=== PATIENT | male | born 1950 | race Caucasian/White ===

== ENCOUNTER 2016-09-28 22:38 | Emergency (ER) | payer SELFPAY ==
[~2016-09-28] VITALS: Ht 177.8 cm; Wt 105.0 kg
[2016-09-28 22:40] VITALS: BP 130/73; PULSE 79; RESP 18; TEMP 98.3; O2SAT 94
[2016-09-28] MEDS ORDERED: METF500T PO (22:58)
[2016-09-28] MEDS ORDERED: LISI10TA3 PO (22:58)
--- NOTE | 2016-09-28 22:58 | PD ---
HPI Chief Complaint: GI Complaint Time Seen by Provider: 22:49 Travel History International Travel<30 days: No Contact w/Intl Traveler<30days: No Traveled to known affect area: No History of Present Illness HPI patient states the last time he had a normal bm was 3 days ago, since then he has progressively become more and more bloated, describes scale at 2/ 10......denies any abdominal surgery. pt does state that he has a history of constipation but usually he starts to produce small bm's and eventually clears up. patient denies association with fever/n/v/..... PFSH Past Medical History Diabetes: Yes Social History Tobacco Use: No Allergies-Medications (Allergen,Severity, Reaction): Coded Allergies: No Known Allergies (Unverified , 09/28/16) Reported Meds & Prescriptions Reported Meds & Active Scripts Active Reported Lisinopril 10 Mg Tab 10 Mg PO DAILY Metformin (Metformin HCl) 500 Mg Tab 500 Mg PO TIDPC With meals Review of Systems Except as stated in HPI: all other systems reviewed are Neg Gastrointestinal: Positive: Abdominal Pain, Constipation Physical Exam Narrative GENERAL: SKIN: Warm and dry. HEAD: Atraumatic. Normocephalic. EYES: Pupils equal and round. No scleral icterus. No injection or drainage. ENT: No nasal bleeding or discharge. Mucous membranes pink and moist. NECK: Trachea midline. No JVD. CARDIOVASCULAR: Regular rate and rhythm. RESPIRATORY: No accessory muscle use. Clear to auscultation. Breath sounds equal bilaterally. GASTROINTESTINAL: Abdomen soft, non-tender, nondistended. bowel sounds present. MUSCULOSKELETAL: Extremities without clubbing, cyanosis, or edema. No obvious deformities. NEUROLOGICAL: Awake and alert. No obvious cranial nerve deficits. Motor grossly within normal limits. Five out of 5 muscle strength in the arms and legs. Normal speech. PSYCHIATRIC: Appropriate mood and affect; insight and judgment normal. Data Data Last Documented VS Vital Signs Date Time Temp Pulse Resp B/P Pulse Ox O2 Delivery O2 Flow Rate FiO2 09/28/16 22:58 18 09/28/16 22:40 98.3 79 130/[address] Abd/Pel W/O Iv Contrast (09/28/16 22:53) Ondansetron Odt (Zofran Odt) (09/28/16 23:45) Lactulose Liq (Lactulose Liq) (09/28/16 23:45) Bisacodyl Supp (Dulcolax Supp) (09/28/16 23:45) MDM Medical Decision Making Medical Screen Exam Complete: Yes Emergency Medical Condition: Yes Medical Record Reviewed: Yes Differential Diagnosis sbo v ileus v constipation v free air Narrative Course CT DID NOT SHOW ANY SBO/ILEUS/OR FREE AIR FOR PARTIAL RELIEF PATIENT GIVEN LACTULOSE/DULCOLAX SUPPOSITORY IN ED Diagnosis Primary Impression: CONSTIPATION Scripts Magnesium Citrate Liq 300 Ml Xnl232 Ml PO ONCE #1 BOTTLE Ref 0 Prov:Olayinka Odell MD 09/28/16 Lactulose Liq 10 Gm/15 Ml Soln30 Ml PO Q6H PRN (CONSTIPATION) #240 ML Ref 0 Prov:Olayinka Odell MD 09/28/16 Polyethylene Glycol 3350 Powder (Miralax Powder)17 Gm Powd17 Gm PO DAILY #1 CAN Ref 0 Mix and dissolve one measuring cap-ful (17 grams) in water or juice. Prov:Olayinka Odell MD 09/28/16 Disposition: 01 DISCHARGE HOME Condition: Stable Olayinka Odell MD Sep 28, 2016 22:58
[2016-09-28] MEDS ORDERED: ONDANSETRON ODT 4 MG TAB PO ONE (23:45)
[2016-09-28] MEDS ORDERED: LACTULOSE SYRUP 20 GM/30 ML CUP PO ONE (23:45)
[2016-09-28] MEDS ORDERED: BISACODYL 10 MG SUPP RECTAL ONE (23:45)
[2016-09-28] MEDS ORDERED: MAGNSOL2 PO (23:47)
[2016-09-28] MEDS ORDERED: LACT10SO PO (23:47)
[2016-09-28] MEDS ORDERED: MIRA3350 PO (23:47)
--- NOTE | 2016-09-28 23:51 | RADRPT ---
EXAM DATE/TIME: 09/28/2016 23:18 [facility] COMPARISON: No previous studies available for comparison. INDICATIONS : Constipation and abdominal pain for 3 days. ORAL CONTRAST: No oral contrast ingested. RADIATION DOSE: 25.28 CTDIvol (mGy) ; Patient body habitus MEDICAL HISTORY : Diabetes mellitus type 2. SURGICAL HISTORY : None. ENCOUNTER: Initial ACUITY: 3 days PAIN SCALE: 6/10 LOCATION: abdomen TECHNIQUE: Volumetric scanning of the abdomen and pelvis was performed. Using automated exposure control and ad justment of the mA and/or kV according to patient size, radiation dose was kept as low as reasonably achievable to obtain optimal diagnostic quality images. DICOM format image data is available electro nically for review and comparison. FINDINGS: LOWER LUNGS: Patchy atelectasis at the lung bases. LIVER: Diffuse marked hypodensity of the liver indicating severe hepatic steatosis. No focal mass identified . Small calcified gallstone in the gallbladder. No pericholecystic inflammatory change. SPLEEN: Enlarged spleen measuring 13.3 cm in craniocaudal dimension. No focal mass identified. PANCREAS: Within normal limits. KIDNEYS: 1.6 cm exophytic mass thinning laterally off the lower pole of the left kidney. It is intermediate de nsity. No renal or ureteral calculi identified. No evidence of hydronephrosis. ADRENAL GLANDS: Within normal limits. VASCULAR: Diffuse aortic calcification. Aortic diameter are within normal limits. BOWEL/MESENTERY: Colonic diverticula. No evidence of acute diverticulitis. No bowel dilatation. No free air or free fl uid. Nonspecific stranding in the mesenteric fat of the right lower quadrant and left lower quadrant. Appendix is not identified. ABDOMINAL WALL: Within normal limits. RETROPERITONEUM: There is no lymphadenopathy. BLADDER: No wall thickening or mass. REPRODUCTIVE: Within normal limits. INGUINAL: There is no lymphadenopathy or hernia. MUSCULOSKELETAL: Moderate severity osteoarthritic findings of the hips. CONCLUSION: 1. Severe hepatic steatosis. 2. Mild splenomegaly. 3. Small gallstone in the gallbladder. No pericholecystic inflammatory change. 4. Nonspecific stranding opacity in the mesenteric fat of the right lower quadrant and left lower rachel drant. No free air or free fluid. 5. Appendix not identified. Myles Gilman MD on September 28, 2016 at 23:42 Board Certified Radiologist. This report was verified electronically.
[2016-09-29 00:11] VITALS: BP 130/70; PULSE 72; RESP 18; O2SAT 98
== END 2016-09-29 00:13 | disposition home or self-care (01) ==
LOC: PHED 22:38
DX: K59.00 Constipation, unspecified (principal)
CPT/HCPCS: 74176

== ENCOUNTER 2016-11-26 11:13 | Inpatient (IN) | payer SELFPAY ==
[~2016-11-26] VITALS: Ht 177.8 cm; Wt 99.8 kg
[2016-11-26] VITALS (10 sets, daily range): BP systolic 126–152; BP diastolic 73–94; PULSE 60–95; RESP 16–26; TEMP 98–98.5; O2SAT 93–97
[~2016-11-26 11:13] MED LIST: LACT10SO PO; LISI10TA3 PO; MAGNSOL2 PO; METF500T PO; MIRA3350 PO
--- NOTE | 2016-11-26 11:33 | PD ---
HPI Chief Complaint: Nosebleed Time Seen by Provider: 11:30 Travel History International Travel<30 days: No Contact w/Intl Traveler<30days: No Traveled to known affect area: No History of Present Illness HPI Patient presents with complaints of persistent nosebleed for approximately one week. Reports recent bout of sinusitis which has improved. Reports unspecific history of thrombocythemia. He is not on any blood thinners. Reports postnasal drainage of blood which is making him slightly nauseous. Denies any lightheadedness dizziness or fatigue. Past medical history for diabetes and hypertension. PFSH Past Medical History Diabetes: Yes Diminished Hearing: No Hypertension: Yes Social History Alcohol Use: No Tobacco Use: No Substance Use: No Allergies-Medications (Allergen,Severity, Reaction): Coded Allergies: No Known Allergies (Unverified , 11/26/16) Reported Meds & Prescriptions Reported Meds & Active Scripts Active Reported Lisinopril 10 Mg Tab 10 Mg PO DAILY Metformin (Metformin HCl) 500 Mg Tab 500 Mg PO TIDPC With meals Review of Systems General / Constitutional: No: Fever Eyes: No: Visual changes HENT: Positive: Nosebleed, No: Headaches Cardiovascular: No: Chest Pain or Discomfort Respiratory: No: Shortness of Breath Gastrointestinal: No: Abdominal Pain Genitourinary: No: Dysuria Musculoskeletal: No: Pain Skin: No Rash Neurologic: No: Weakness Psychiatric: No: Depression Endocrine: No: Polydipsia Hematologic/Lymphatic: No: Easy Bruising Physical Exam Narrative GENERAL: Well-nourished, well-developed patient. SKIN: Focused skin assessment warm/dry. HEAD: Normocephalic. Nares are filled with clotted blood EYES: No scleral icterus. No injection or drainage. NECK: Supple, trachea midline. No JVD or lymphadenopathy. CARDIOVASCULAR: Regular rate and rhythm without murmurs, gallops, or rubs. RESPIRATORY: Breath sounds equal bilaterally. No accessory muscle use. GASTROINTESTINAL: Abdomen soft, non-tender, nondistended. MUSCULOSKELETAL: No cyanosis, or edema. BACK: Nontender without obvious deformity. No CVA tenderness. Data Data Last Documented VS Vital Signs Date Time Temp Pulse Resp B/P (MAP) Pulse Ox O2 Delivery O2 Flow Rate FiO2 11/26/16 11:32 (92) 11/26/16 11:28 98.3 60 18 97 Room Air Orders Orders Complete Blood Count With Diff (11/26/16 11:34) Platelet Pheresis (11/26/16 12:16) Blood Product Administration .UPON TRANSFUSION (11/26/16 12:16) Sodium Chlor 0.9% 250 Ml Inj (Ns 250 Ml (11/26/16 12:30) Admit Order (Ed Use Only) (11/26/16 ) Vital Signs (Adult) Q4H (11/26/16 12:33) Diet 1800 Ada Cons Carb (11/26/16 Lunch) Activity Bed Rest With Brp (11/26/16 12:33) Complete Blood Count With Diff (11/27/16 06:00) Bedside Glucose DENIS.CSUGAR (11/26/16 12:33) Notify Dr: Other (11/26/16 12:33) ^ Saline Lock (11/26/16 12:33) Resp Oxygen Edmar C Titrat 1-4 L (11/26/16 ) Notify Dr: Other (11/26/16 12:33) Ondansetron Inj (Zofran Inj) (11/26/16 12:45) Acetaminophen (Tylenol) (11/26/16 12:45) Sodium Chloride 0.9% Flush (Ns Flush) (11/26/16 21:00) Sodium Chloride 0.9% Flush (Ns Flush) (11/26/16 12:45) Consult Hematology (11/26/16 ) Labs Laboratory Tests Test 11/26/16 11:45 White Blood Count 7.3 TH/MM3 Red Blood Count 3.87 MIL/MM3 Hemoglobin 13.9 GM/DL Hematocrit 41.1 % Mean Corpuscular Volume 106.1 FL Mean Corpuscular Hemoglobin 36.0 PG Mean Corpuscular Hemoglobin Concent 33.9 % Red Cell Distribution Width 14.2 % Platelet Count 4 TH/MM3 Mean Platelet Volume 6.9 FL Neutrophils (%) (Auto) 60.0 % Lymphocytes (%) (Auto) 22.8 % Monocytes (%) (Auto) 10.0 % Eosinophils (%) (Auto) 4.0 % Basophils (%) (Auto) 3.2 % Neutrophils # (Auto) 4.4 TH/MM3 Lymphocytes # (Auto) 1.7 TH/MM3 Monocytes # (Auto) 0.7 TH/MM3 Eosinophils # (Auto) 0.3 TH/MM3 Basophils # (Auto) 0.2 TH/MM3 CBC Comment AUTO DIFF Differential Comment AUTO DIFF CONFIRMED Platelet Estimate RARE Platelet Morphology Comment NORMAL MDM Medical Decision Making Medical Screen Exam Complete: Yes Emergency Medical Condition: Yes Differential Diagnosis epistaxis, thrombocytopenia, ITP Narrative Course assessment and plan discussed patient at bedside Physician Communication Physician Communication Spoke with Dr. Talley who is in agreement will admit. Spoke with Dr. Jarquin who recommended oral steroid and LDH to differentiate between ITP and TTP. Diagnosis Primary Impression: Thrombocytopenia Additional Impression: Epistaxis Admitting Information Admitting Physician Requests: Admit Jorge Luis Rueda MD Nov 26, 2016 11:33
[2016-11-26 11:51] LABS: AUTOMATED NEUTROPHIL # 4.4 TH/MM3 (1.8-7.7); BASOPHIL # 0.2 TH/MM3 (0-0.2); BASOPHIL % 3.2 % (0.0-2.0); EOSINOPHIL # 0.3 TH/MM3 (0-0.4); HEMATOCRIT 41.1 % (39.0-51.0); LYMPH % 22.8 % (9.0-44.0); LYMPHOCYTE # 1.7 TH/MM3 (1.0-4.8); MEAN CELL VOLUME 106.1 FL (80.0-100.0); MEAN CORPUSCULAR HGB CONC 33.9 % (32.0-36.0); RED BLOOD COUNT 3.87 MIL/MM3 (4.50-5.90); RED CELL DISTRIBUTION WIDTH 14.2 % (11.6-17.2); WHITE BLOOD COUNT 7.3 TH/MM3 (4.0-11.0)
[2016-11-26 12:04] LABS: HEMO FLAGS AUTO DIFF; PLATELET COUNT 4 TH/MM3 (150-450)
[2016-11-26 12:14] LABS: PLATELET ESTIMATE SMEAR RARE (NORMAL); PLATELET MORPHOLOGY NORMAL (NORMAL); SCAN/DIFF AUTO DIFF CONFIRMED
[2016-11-26] MEDS ORDERED: SODIUM CHLOR 0.9% 250 ML INJ 250 ML IV ONE (12:30)
[2016-11-26] MEDS ORDERED: predniSONE 10 MG TAB PO SCH (12:45)
[2016-11-26] MEDS ORDERED: ACETAMINOPHEN 325 MG TAB PO PRN (12:45)
[2016-11-26] MEDS ORDERED: ONDANSETRON HCL 4 MG/2 ML VIAL IV PRN (12:45)
[2016-11-26] MEDS ORDERED: SODIUM CHLORIDE 0.9% FLUSH 10 ML FLUSH IVF PRN (12:45)
[2016-11-26] MEDS ORDERED: NALOXONE HCL 0.4 MG/ML AMP IV PUSH PRN (13:30)
[2016-11-26] MEDS ORDERED: ACETAMINOPHEN/HYDROcodone 325 MG/5 MG TAB PO PRN (13:30)
[2016-11-26] MEDS ORDERED: BISACODYL 10 MG SUPP RECTAL PRN (13:30)
[2016-11-26] MEDS ORDERED: MAGNESIUM HYDROXIDE SUSP 30 ML CUP PO PRN (13:30)
[2016-11-26] MEDS ORDERED: LACTULOSE SYRUP 20 GM/30 ML CUP PO PRN (13:30)
[2016-11-26] MEDS ORDERED: DEXTROSE 50% IN WATER 50 ML VIAL(D50) IV PUSH PRN (13:30)
[2016-11-26] MEDS ORDERED: GLUCAGON 1 MG/ML VIAL OTHER PRN (13:30)
[2016-11-26] MEDS ORDERED: SODIUM CHLORIDE 0.9% FLUSH 10 ML FLUSH IV FLUSH PRN (13:30)
[2016-11-26] MEDS ORDERED: SENNOSIDES 8.6 MG TAB PO PRN (13:30)
[2016-11-26 13:50] LABS: BICARBONATE 25.3 MEQ/L (21.0-32.0); POTASSIUM 3.9 MEQ/L (3.5-5.1)
[2016-11-26 14:29] LABS: INDIRECT BILIRUBIN 1.3 MG/DL (0.0-0.8); TOTAL BILIRUBIN ADULT 2.7 MG/DL (0.2-1.0)
[2016-11-26 14:30] LABS: APTT (PATIENT) 32.1 SEC (24.3-30.1); INTERNATIONAL NORMALIZED RATIO 1.2 RATIO; PROTHROMBIN TIME - PATIENT 13.3 SEC (9.8-11.6)
--- NOTE | 2016-11-26 14:35 | HHI.HP ---
HPI [facility] Primary Care Physician No Primary Care Physician Admission Diagnosis thrombocytopenia Diagnoses: Travel History International Travel<30 Days: No Contact w/Intl Traveler <30 Da: No Traveled to Known Affected Are: No History of Present Illness This is a 65 year-old male with past medical history of type 2 diabetes and hypertension who presents for a two-week history of intermittent nosebleeds. The patient states he's been having nasal bleeding which resolves on its own and also postnasal drip. The symptoms continued to bother him so he presented to the ER. In the emergency department he was found to have platelet count of 4000. The patient states he was told he had low platelets 2 years ago by his primary care physician at that time there were 80,000. The patient states he has never received medication or transfusion. The patient states he recently moved here from [place] and has not established with a primary care physician. The patient denies any GI bleeding. Denies any rash or fever. He states he gets have a cold 2 weeks ago before the nasal bleeding started. Review of Systems Constitutional: DENIES: Fever, Chills Ears, nose, mouth, throat: COMPLAINS OF: Epistaxis, DENIES: Throat pain Respiratory: DENIES: Cough, Shortness of breath Cardiovascular: DENIES: Syncope, Lower Extremity Edema Gastrointestinal: DENIES: Abdominal pain, Black stools, Bloody stools Genitourinary: DENIES: Urgency, Dysuria Musculoskeletal: DENIES: Back pain, Neck pain Integumentary: DENIES: Pruritus, Rash Hematologic/lymphatic: DENIES: Lymphadenopathy Neurologic: DENIES: Abnormal gait, Headache Psychiatric: DENIES: Anxiety, Confusion Past Family Social History Past Medical History As per history of present illness Past Surgical History Facelift 25 years ago after his divorce Allergies: Coded Allergies: No Known Allergies (Unverified , 11/26/16) Family History Negative for blood cell dyscrasia Social History He quit drinking about 10 days ago no history of tobacco use Physical Exam Vital Signs Vital Signs Date Time Temp Pulse Resp B/P (MAP) Pulse Ox O2 Delivery O2 Flow Rate FiO2 11/26/16 13:40 98.1 72 26 152/94 (113) 96 11/26/16 13:33 11/26/16 13:22 64 16 126/80 (95) 96 Room Air 11/26/16 11:32 (92) 11/26/16 11:28 98.3 60 18 131/73 (92) 97 Room Air Physical Exam GENERAL: This is a well-nourished, well-developed patient, in no apparent distress. SKIN: No rashes, ecchymoses or lesions. Cool and dry. No petechiae. HEAD: Atraumatic. Normocephalic. EYES: Pupils equal round and reactive. Extraocular motions intact. No scleral icterus. No injection or drainage. ENT: Nares currently without bleeding. He does have dried blood on his lips. Throat without erythema, tonsillar hypertrophy or exudate. Uvula midline. Airway patent. NECK: Trachea midline. No JVD or lymphadenopathy. Supple, nontender, no meningeal signs. CARDIOVASCULAR: Regular rate and rhythm without murmurs, gallops, or rubs. RESPIRATORY: Clear to auscultation. Breath sounds equal bilaterally. No wheezes , rales, or rhonchi. GASTROINTESTINAL: Abdomen soft, non-tender, nondistended. No hepato-splenomegaly , or palpable masses. No guarding. MUSCULOSKELETAL: Extremities without clubbing, cyanosis, or edema. NEUROLOGICAL: Awake and alert. Motor and sensory grossly within normal limits. Normal speech. Laboratory Laboratory Tests Test 11/26/16 11:45 11/26/16 13:45 White Blood Count 7.3 Red Blood Count 3.87 Hemoglobin 13.9 Hematocrit 41.1 Mean Corpuscular Volume 106.1 Mean Corpuscular Hemoglobin 36.0 Mean Corpuscular Hemoglobin Concent 33.9 Red Cell Distribution Width 14.2 Platelet Count 4 Mean Platelet Volume 6.9 Neutrophils (%) (Auto) 60.0 Lymphocytes (%) (Auto) 22.8 Monocytes (%) (Auto) 10.0 Eosinophils (%) (Auto) 4.0 Basophils (%) (Auto) 3.2 Neutrophils # (Auto) 4.4 Lymphocytes # (Auto) 1.7 Monocytes # (Auto) 0.7 Eosinophils # (Auto) 0.3 Basophils # (Auto) 0.2 CBC Comment AUTO DIFF Differential Comment AUTO DIFF CONFIRMED Platelet Estimate RARE Platelet Morphology Comment NORMAL Prothrombin Time 13.3 Prothromb Time International Ratio 1.2 Activated Partial Thromboplast Time 32.1 Blood Urea Nitrogen 7 Creatinine 0.69 Random Glucose 201 Calcium Level 8.1 Lactate Dehydrogenase 330 Sodium Level 135 Potassium Level 3.9 Chloride Level 102 Carbon Dioxide Level 25.3 Anion Gap 8 Estimat Glomerular Filtration Rate 116 Total Bilirubin 2.7 Direct Bilirubin 1.4 Indirect Bilirubin 1.3 Aspartate Amino Transf (AST/SGOT) 96 Alanine Aminotransferase (ALT/SGPT) 38 Alkaline Phosphatase 116 Total Protein 7.1 Albumin 2.8 Blood Smear Pathologist Review Result Diagram: 11/26/16 1145 11/26/16 1145 Caprini VTE Risk Assessment Caprini VTE Risk Assessment: No/Low Risk (score <= 1) Caprini Risk Assessment Model Point Value = 1 Point Value = 2 Point Value = 3 Point Value = 5 Age 41-60 Minor surgery BMI > 25 kg/m2 Swollen legs Varicose veins or History of unexplained or recurrent spontaneous Oral contraceptives or hormone replacement Sepsis (< 1 month) Serious lung disease, including pneumonia (< 1 month) Abnormal pulmonary function Acute myocardial infarction Congestive heart failure (< 1 month) History of inflammatory bowel disease Medical patient at bed rest Age 61-74 Arthroscopic surgery Major open surgery (> 45 min) Laparoscopic surgery (> 45 min) Malignancy Confined to bed (> 72 hours) Immobilizing plaster cast Central venous access Age >= 75 History of VTE Family history of VTE Factor V Leiden Prothrombin [id number] Lupus anticoagulant Anticardiolipin antibodies Elevated serum homocysteine Heparin-induced thrombocytopenia Other congenital or acquired thrombophilia Stroke (< 1 month) Elective arthroplasty Hip, pelvis, or leg fracture Acute spinal cord injury (< 1 month) Prophylaxis Regimen Total Risk Factor Score Risk Level Prophylaxis Regimen 0-1 Low Early ambulation 2 Moderate Order ONE of the following: *Sequential Compression Device (SCD) *Heparin 5000 units SQ BID 3-4 Higher Order ONE of the following medications: *Heparin 5000 units SQ TID *Enoxaparin/Lovenox 40 mg SQ daily (WT < 150 kg, CrCl > 30 mL/min) *Enoxaparin/Lovenox 30 mg SQ daily (WT < 150 kg, CrCl > 10-29 mL/min) *Enoxaparin/Lovenox 30 mg SQ BID (WT < 150 kg, CrCl > 30 mL/min) AND/OR *Sequential Compression Device (SCD) 5 or more Highest Order ONE of the following medications: *Heparin 5000 units SQ TID (Preferred with Epidurals) *Enoxaparin/Lovenox 40 mg SQ daily (WT < 150 kg, CrCl > 30 mL/min) *Enoxaparin/Lovenox 30 mg SQ daily (WT < 150 kg, CrCl > 10-29 mL/min) *Enoxaparin/Lovenox 30 mg SQ BID (WT < 150 kg, CrCl > 30 mL/min) AND *Sequential Compression Device (SCD) Assessment and Plan Assessment and Plan -Thrombocytopenia, 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 Emergency department physician contacted to the figurine maker on-call who recommended steroids. I started patient on 100 mg of prednisone daily. Emergency department physician did order platelet transfusion. We'll start Protonix for GI prophylaxis. LDH is pending. Peripheral blood smear is pending. -Nosebleeds due to thrombocytopenia. Not currently bleeding. Monitor. -Type 2 diabetes. Continue metformin. Sliding scale insulin with Accu-Cheks. -Hypertension continue lisinopril. -DVT prophylaxis with SCDs Magali Talley MD Nov 26, 2016 14:35
[2016-11-26] MEDS: predniSONE 20 MG TAB PO SCH (14:45)
[2016-11-26] MEDS: metFORMIN HCL 500 MG TAB PO SCH ×2 (14:46→18:22)
[2016-11-26] MEDS: PANTOPRAZOLE SOD 20 MG DELAYED RELEASE TAB PO SCH (15:12)
[2016-11-26] MEDS ORDERED: OXYMETAZOLINE HCL 0.05% 15 ML NASAL SPRAY NASAL PRN (16:30)
[2016-11-26] MEDS: FOLIC ACID 1 MG TAB PO SCH (16:54)
--- NOTE | 2016-11-26 17:50 | MB ---
cc: HÉCTOR MENDIETA M.D., RUBY ANNE E. M.D. DATE OF CONSULTATION: 11/26/2016. REASON FOR CONSULTATION: Dr. Mendieta requested consultation for Mr. Rodriguez with severe thrombocytopenia associated with epistaxis. REFERRING PHYSICIAN: Dr. Héctor Mendieta. HISTORY OF PRESENT ILLNESS: Mr. Rodriguez is a 65-year-old man with history of diabetes. He initially presented to the [facility] Emergency Room with GI complaints on 09/28/2016. He describes feeling bloated. He has a history of constipation. He had no nausea or vomiting. Imaging study was performed. CT scan of the abdomen and pelvis shows severe hepatic steatosis, mild splenomegaly, small gallstone in the gallbladder. There is nonspecific stranding opacity in the mesenteric fat of the right lower quadrant and the left lower quadrant. No free air. The appendix was not identified. Ultimately he was discharged home. No labs were performed. He reports a history of thrombocytopenia from his physicians in [place]. He has moved temporarily to the [facility] near his mother pending a more permanent move to [place]. He reports his platelet count is 80,000; it went up after further evaluation. He never saw a instructor military science. He never had a bone marrow biopsy. No specific treatment was required for the mild thrombocytopenia. He has had no symptoms associated with it until now. Ten days ago he had an upper respiratory infection. Apparently his mother had an upper respiratory infection. He presented with sinus symptoms with some runny nose, coughing with productive sputum and no fever. It was at this time that his epistaxis began. Prior to that, he has no history of bleeding. No melena or bright red blood per rectum. He has chronic psoriasis of the lower extremities. He has had no petechiae. He noticed some wet purpura in his gums. He was taking ibuprofen at night because of his sinus symptoms unfortunately. Finally since his epistaxis was not improving, he presented to the emergency room and was seen by Dr. Mendieta. He has had persistent nosebleed for about a week. His platelet count is only 4000. Peripheral smear was reviewed. There were no platelet clumps. There were very few platelets. There seems to be a macrocytic picture for the red cells. Occasional activated lymphocytes. No nucleated red blood cells seen. The LDH was 330, which was slightly elevated. Liver function is interesting with a bilirubin of 2.7, direct of 1.4, indirect 1.3, AST is 96. The patient denies any history liver disease. He denies any problem with alcohol. It was his mother who on the side reports his alcohol abuse. He apparently drinks half a bottle of vodka every day. She feels that he has been drinking a lot more recently. This is consistent with his steatohepatitis and splenomegaly seen on his CT scan September. His epistaxis has resolved after the platelet transfusion. He is tolerating the steroids well. He is taking a proton pump inhibitor. There rest of his review of systems is negative. PAST MEDICAL HISTORY: 1. Diabetes. 2. Hypertension. 3. Steatohepatitis. 4. Alcoholic liver disease. 5. Alcoholism. PAST SURGICAL HISTORY: None FAMILY HISTORY: Father of Parkinson's in his 80s. Mother is alive and well. SOCIAL HISTORY: Denies any tobacco, alcohol or illicit drug use to the primary team. His mother reports otherwise. ALLERGIES: NO KNOWN DRUG ALLERGIES. MEDICATIONS FROM HOME: 1. Lisinopril. 2. Metformin. CURRENT MEDICATIONS: 1. Lisinopril. 2. NovoLog. 3. Deltasone. 4. Protonix. 5. [place]. 6. Narcan PRN. 7. Milk of magnesia. 8. Ondansetron. PHYSICAL EXAMINATION: VITAL SIGNS: Temperature 98.5, heart rate 78, respiratory rate 18, blood pressure 133/92, saturation 93%. GENERAL: Mr. Rodriguez is a well-developed, well-nourished man who actually looks older than his stated age. HEAD, EYES, EARS, NOSE, THROAT: His pupils are round and reactive to light and accommodation. The sclerae are mildly icteric. NECK: The neck is supple with no adenopathy. The mouth is significant for wet purpura on the lower lip. LUNGS: Clear to auscultation. CARDIOVASCULAR: Normal rate and rhythm. ABDOMEN: Large and distended. LOWER EXTREMITIES: With trace edema. There are chronic venous changes. There is a psoriatic plaque that has resolved on both legs, more prominent on the left. LABS: Hemoglobin 13.9, MCV 106, platelet count of 4000, mean platelet volume of 6.9. Glucose 201. Total bilirubin 2.7. PT and PTT are both prolonged. ASSESSMENT AND PLAN: Mr. Rodriguez is a 65-year-old man with history of alcohol use, which he has not been willing to disclose. He has evidence of steatohepatitis by imaging study during emergency room visit on 09/28/2016. He has known thrombocytopenia from two years ago, probably owing to the liver disease and the steatohepatitis with splenomegaly. 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 He reports a viral illness and subsequent to that has developed epistaxis. We discussed treatment for immune thrombocytopenic purpura. He is placed on steroids. He seems to be tolerating treatment well. We will check a platelet count in the morning. If his platelet count is improved to greater than 20,000, he may be discharged to follow up in the regional oncology clinic on an outpatient basis. We discussed if his platelet count continues to be low or not improved with steroids alone, we would initiate IVIG therapy. He would like to avoid that in the hopes of using one modality to improve his response. Afrin is offered for p.r.n. if his epistaxis recurs. We can use fibrinolytic agents to help. He will need to stop his alcohol use because of liver function elevation and the overt damage that is seen from the liver. He may need formal intervention and detox for this. It is likely the etiology of his thrombocytopenia initially. We discussed the diagnosis of ITP is a diagnosis of exclusion. I defer a bone marrow biopsy evaluation as he is planning to move to a more permanent place in [place]. It is best he establish with a permanent physician to coordinate this. We perform generally a bone marrow biopsy to rule out other causes of thrombocytopenia. It appears to be ITP in light of the low platelet counts but otherwise normal hemoglobin and white blood cell count. The macrocytosis is nicely explained by his alcohol consumption and liver disease. Folic acid is offered. We will monitor closely for any signs of DTs. He has no tremors. He is going to be checked for B12 deficiency. If low, B12 supplementation will be ordered. Lupus anticoagulant, antiphospholipid antibody panel will be checked. There are no other drugs to be considered as the cause of the thrombocytopenia. His questions were answered to his satisfaction. He was given information to follow up on in clinic on an outpatient basis. He may ultimately need to see a can repairer for liver abnormality. Gosia Daksha E. Deveras, MD RAD/THAO /4:24 PM /5:29 PM
[2016-11-26] MEDS: INSULIN ASPART SUPPLEMENTAL SCALE SQ SCH ×2 (18:21→22:32)
[2016-11-26] MEDS ORDERED: SODIUM CHLORIDE 0.9% FLUSH 10 ML FLUSH IV FLUSH SCH (21:00)
[2016-11-26] MEDS: SODIUM CHLORIDE 0.9% FLUSH 10 ML FLUSH IV FLUSH SCH (22:32)
[2016-11-27] VITALS (7 sets, daily range): BP systolic 118–135; BP diastolic 80–89; PULSE 67–80; RESP 16–19; TEMP 97.5–98; O2SAT 93–97
[2016-11-27] MEDS: LISINOPRIL 10 MG TAB PO SCH (08:46)
[2016-11-27] MEDS: predniSONE 20 MG TAB PO SCH (08:46)
[2016-11-27] MEDS: INSULIN ASPART SUPPLEMENTAL SCALE SQ SCH ×4 (08:46→21:30)
[2016-11-27] MEDS: PANTOPRAZOLE SOD 20 MG DELAYED RELEASE TAB PO SCH (08:46)
[2016-11-27] MEDS: metFORMIN HCL 500 MG TAB PO SCH ×3 (08:47→16:59)
[2016-11-27] MEDS: FOLIC ACID 1 MG TAB PO SCH (08:47)
[2016-11-27 08:49] LABS: AUTOMATED NEUTROPHIL # 5.5 TH/MM3 (1.8-7.7); BASOPHIL % 0.4 % (0.0-2.0); EOSINOPHIL % 0.1 % (0.0-4.0); HEMATOCRIT 40.5 % (39.0-51.0); LYMPH % 12.6 % (9.0-44.0); LYMPHOCYTE # 0.8 TH/MM3 (1.0-4.8); MEAN CELL VOLUME 105.9 FL (80.0-100.0); MEAN CORPUSCULAR HEMOGLOBIN 36.4 PG (27.0-34.0); MEAN CORPUSCULAR HGB CONC 34.4 % (32.0-36.0); MONO % 6.7 % (0.0-8.0); NEUT % 80.2 % (16.0-70.0); RED BLOOD COUNT 3.83 MIL/MM3 (4.50-5.90); WHITE BLOOD COUNT 6.7 TH/MM3 (4.0-11.0)
[2016-11-27] MEDS: SODIUM CHLORIDE 0.9% FLUSH 10 ML FLUSH IV FLUSH SCH ×2 (08:50→21:00)
[2016-11-27] MEDS ORDERED: predniSONE 20 MG TAB PO SCH (09:00)
[2016-11-27 09:10] LABS: INDIRECT BILIRUBIN 1.1 MG/DL (0.0-0.8); TOTAL BILIRUBIN ADULT 2.2 MG/DL (0.2-1.0)
[2016-11-27 09:11] LABS: HEMO FLAGS AUTO DIFF
[2016-11-27 09:12] LABS: PLATELET COUNT 13 TH/MM3 (150-450)
[2016-11-27 10:13] LABS: PLATELET ESTIMATE SMEAR LOW (NORMAL); PLATELET MORPHOLOGY NORMAL (NORMAL); SCAN/DIFF AUTO DIFF CONFIRMED
[2016-11-27] MEDS ORDERED: FLUMAZENIL 0.5 MG/5 ML VIAL IV PUSH PRN (10:15)
[2016-11-27] MEDS ORDERED: LORazepam 1 MG TAB PO PRN (10:15)
[2016-11-27] MEDS ORDERED: LORazepam 2 MG/ML VIAL IV PUSH PRN ×4 (10:15)
[2016-11-27] MEDS ORDERED: LORazepam 2 MG TAB PO PRN (10:15)
--- NOTE | 2016-11-27 13:35 | HHI.PR ---
Subjective Remarks Patient denies any further nasal bleeding or postnasal drip. No tremors or anxiety. Objective Vitals Vital Signs Date Time Temp Pulse Resp B/P (MAP) Pulse Ox O2 Delivery O2 Flow Rate FiO2 11/27/16 12:00 97.6 79 19 118/80 (93) 97 11/27/16 08:00 97.5 76 16 125/82 (96) 96 11/27/16 07:40 94 21 11/27/16 04:05 11/27/16 00:08 97.7 78 16 135/85 (102) 93 11/26/16 21:21 98.0 66 18 131/91 (104) 95 11/26/16 20:00 96 21 11/26/16 18:00 96 21 11/26/16 16:48 98.2 85 18 133/92 96 11/26/16 16:33 98.1 95 18 138/86 11/26/16 16:13 98.5 78 18 133/92 93 11/26/16 15:53 98.1 65 20 151/93 (112) 96 11/26/16 13:40 98.1 72 26 152/94 (113) 96 I/O 11/26/16 11/26/16 11/26/16 11/27/16 11/27/16 11/27/16 07:00 15:00 23:00 07:00 15:00 23:00 Intake Total 260 ml Balance 260 ml Intake Oral 240 ml IV Total 10 ml Blood Product IV Normal Saline Flush 10 ml # Voids 1 4 # Bowel Movements 1 Result Diagram: 11/27/16 0833 11/26/16 1145 Objective Remarks GENERAL: Well-nourished, well-developed patient. SKIN: Warm and dry. HEAD: Normocephalic. EYES: No scleral icterus. No injection or drainage. NECK: Supple, trachea midline. No JVD or lymphadenopathy. CARDIOVASCULAR: Regular rate and rhythm without murmurs, gallops, or rubs. RESPIRATORY: Breath sounds equal bilaterally. No accessory muscle use. GASTROINTESTINAL: Abdomen soft, non-tender, nondistended. EXTREMITIES: No cyanosis, or edema. NEUROLOGICAL: Awake, alert, and oriented x 3. Non-focal. No tremors. 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 Appreciate pulmonology consult. Continue 100 mg of prednisone daily. Platelets improved to 14,000 today. -Nosebleeds due to thrombocytopenia. Not currently bleeding. Monitor. -Type 2 diabetes. Continue metformin. Sliding scale insulin with Accu-Cheks. -Alcohol abuse. Last drink 10 days ago as per the patient. Monitor for signs of withdrawal. Alcohol withdrawal protocol as needed. -Hypertension continue lisinopril. -DVT prophylaxis with SCDs Magali Talley MD Nov 27, 2016 13:35
--- NOTE | 2016-11-27 17:43 | PD.ONC.PN ---
Subjective Subjective Remarks Anxious about slow rise platelet. Objective Data Date Time Temp Pulse Resp B/P (MAP) Pulse Ox O2 Delivery O2 Flow Rate FiO2 11/27/16 16:00 97.7 80 19 123/80 (94) 95 11/27/16 12:00 97.6 79 19 118/80 (93) 97 11/27/16 08:00 97.5 76 16 125/82 (96) 96 11/27/16 07:40 94 21 11/27/16 04:05 11/27/16 00:08 97.7 78 16 135/85 (102) 93 11/26/16 21:21 98.0 66 18 131/91 (104) 95 11/26/16 20:00 96 21 11/26/16 18:00 96 21 Result Diagram: 11/27/16 0833 11/26/16 1145 Laboratory Results Laboratory Tests Test 11/26/16 21:33 11/27/16 08:33 Fibrinogen 335 mg/dL White Blood Count 6.7 TH/MM3 Red Blood Count 3.83 MIL/MM3 Hemoglobin 13.9 GM/DL Hematocrit 40.5 % Mean Corpuscular Volume 105.9 FL Mean Corpuscular Hemoglobin 36.4 PG Mean Corpuscular Hemoglobin Concent 34.4 % Red Cell Distribution Width 14.0 % Platelet Count 13 TH/MM3 Mean Platelet Volume 9.1 FL Neutrophils (%) (Auto) 80.2 % Lymphocytes (%) (Auto) 12.6 % Monocytes (%) (Auto) 6.7 % Eosinophils (%) (Auto) 0.1 % Basophils (%) (Auto) 0.4 % Neutrophils # (Auto) 5.5 TH/MM3 Lymphocytes # (Auto) 0.8 TH/MM3 Monocytes # (Auto) 0.4 TH/MM3 Eosinophils # (Auto) 0.0 TH/MM3 Basophils # (Auto) 0.0 TH/MM3 CBC Comment AUTO DIFF Differential Comment AUTO DIFF CONFIRMED Platelet Estimate LOW Platelet Morphology Comment NORMAL Haptoglobin 53 MG/DL Total Bilirubin 2.2 MG/DL Direct Bilirubin 1.1 MG/DL Indirect Bilirubin 1.1 MG/DL Aspartate Amino Transf (AST/SGOT) 84 U/L Alanine Aminotransferase (ALT/SGPT) 38 U/L Alkaline Phosphatase 130 U/L Total Protein 7.0 GM/DL Albumin 2.7 GM/DL Administered Medications Medications (Trade) Dose Ordered Sig/Catie Route PRN Reason Start Time Stop Time Status Last Admin Dose Admin Prednisone (Deltasone) 100 mg DAILY PO 11/26/16 14:00 11/27/16 08:46 Pantoprazole Sodium (Protonix) 20 mg DAILY PO 11/26/16 14:00 11/27/16 08:46 Sodium Chloride (NS Flush) 2 ml BID IV FLUSH 11/26/16 21:00 11/27/16 08:50 Insulin Aspart (NovoLOG SUPPLEMENTAL SCALE) 1 ACHS SLIDING SCALE SQ 11/26/16 17:00 11/27/16 16:59 Lisinopril (Prinivil) 10 mg DAILY PO 11/27/16 09:00 11/27/16 08:46 Metformin HCl (Glucophage) 500 mg TIDPC PO 11/26/16 13:30 11/27/16 16:59 Folic Acid (Folate) 1 mg DAILY PO 11/26/16 16:30 11/27/16 08:47 Objective Remarks GENERAL: Well-nourished, well-developed patient. SKIN: Warm and dry. HEAD: Normocephalic. EYES: No scleral icterus. No injection or drainage. NECK: Supple, trachea midline. No JVD or lymphadenopathy. LYMPHATIC: No adenopathy. CARDIOVASCULAR: Regular rate and rhythm without murmurs. RESPIRATORY: Breath sounds equal bilaterally. No accessory muscle use. GASTROINTESTINAL: Abdomen soft, non-tender, nondistended. EXTREMITIES: No cyanosis, or edema. MUSCULOSKELETAL: Adequate muscle tone. NEUROLOGICAL: No obvious focal deficit. Awake, alert, and oriented x3. Assessment/Plan Problem List: (1) Acute ITP ICD Codes: D69.3 - Immune thrombocytopenic purpura Status: Acute Plan: REcent URI, h/o chronic thrombocytopenia suspect from ETOH. Pt presented with epistaxis and platelet 4K, now increased on 24 hours steroids. Cont prednisone. OK to DC when platelet >20K with tapering dose Advised to fu this Sunday at [facility] at PO (2) Epistaxis ICD Codes: R04.0 - Epistaxis Status: Resolved Plan: s/p platelet transfusion and steroid started for ITP Afrin available prn. Assessment 65 y/o man with h/o thrombocytopenia secondary to ETOH, present w/ epistaxis and acute exacerbation thrombocytopenia after viral illness. Plan 1. Monitor platelet count. 2. Continue prednisone. 3. FU [facility] on Sunday to check CBC. 4. OK for DC if platelet >20K and no bleeding. Gosia Jarquin MD Nov 27, 2016 17:43
[2016-11-28] VITALS: BP 118/79; PULSE 66; RESP 18; TEMP 96.8; O2SAT 98
[2016-11-28 06:39] LABS: HEMATOCRIT 40.7 % (39.0-51.0); MEAN CELL VOLUME 106.8 FL (80.0-100.0); MEAN CORPUSCULAR HEMOGLOBIN 36.3 PG (27.0-34.0); PLATELET COUNT 24 TH/MM3 (150-450); RED BLOOD COUNT 3.81 MIL/MM3 (4.50-5.90); RED CELL DISTRIBUTION WIDTH 14.3 % (11.6-17.2); WHITE BLOOD COUNT 6.6 TH/MM3 (4.0-11.0)
[2016-11-28 07:00] LABS: REVIEW FLAG FINAL
[2016-11-28] MEDS: INSULIN ASPART SUPPLEMENTAL SCALE SQ SCH ×2 (07:30→12:00)
[2016-11-28] MEDS: metFORMIN HCL 500 MG TAB PO SCH ×2 (07:37→12:12)
[2016-11-28] MEDS: predniSONE 20 MG TAB PO SCH (07:38)
[2016-11-28] MEDS: PANTOPRAZOLE SOD 20 MG DELAYED RELEASE TAB PO SCH (07:38)
[2016-11-28] MEDS: FOLIC ACID 1 MG TAB PO SCH (07:38)
[2016-11-28] MEDS: LISINOPRIL 10 MG TAB PO SCH (07:38)
[2016-11-28 08:07] VITALS: BP 137/87; PULSE 90; RESP 22; TEMP 96.4; O2SAT 94
[2016-11-28 08:34] VITALS: O2SAT 96
[2016-11-28 08:38] VITALS: BP 137/87; PULSE 90; RESP 22; TEMP 96.4; O2SAT 94
[2016-11-28 09:00] VITALS: RESP 20
[2016-11-28] MEDS: SODIUM CHLORIDE 0.9% FLUSH 10 ML FLUSH IV FLUSH SCH (09:00)
[2016-11-28] MEDS ORDERED: PRED20 PO (11:52)
[2016-11-28] MEDS ORDERED: PANT20 PO (11:55)
--- NOTE | 2016-11-28 11:55 | HHI.DS ---
Discharge Summary Admission Date Nov 26, 2016 at 12:39 Discharge Date: Nov 28, 2016 Admitting Diagnosis thrombocytopenia (1) Acute ITP ICD Code: D69.3 - Immune thrombocytopenic purpura Status: Acute (2) Thrombocytopenia ICD Code: D69.6 - Thrombocytopenia, unspecified Status: Acute (3) Epistaxis ICD Code: R04.0 - Epistaxis Status: Resolved Procedures None Brief History - From Admission This is a 65 year-old male with past medical history of type 2 diabetes and hypertension who presents for a two-week history of intermittent nosebleeds. The patient states he's been having nasal bleeding which resolves on its own and also postnasal drip. The symptoms continued to bother him so he presented to the ER. In the emergency department he was found to have platelet count of 4000. The patient states he was told he had low platelets 2 years ago by his primary care physician at that time there were 80,000. The patient states he has never received medication or transfusion. The patient states he recently moved here from [place] and has not established with a primary care physician. The patient denies any GI bleeding. Denies any rash or fever. He states he gets have a cold 2 weeks ago before the nasal bleeding started. The patient states he used to drink alcohol heavily but stopped about 10 days ago. CBC/BMP: 11/28/16 0425 11/26/16 1145 Significant Findings Laboratory Tests Test 11/26/16 11:45 11/26/16 13:45 11/26/16 21:33 11/27/16 08:33 Red Blood Count 3.87 MIL/MM3 (4.50-5.90) 3.83 MIL/MM3 (4.50-5.90) Mean Corpuscular Volume 106.1 FL (80.0-100.0) 105.9 FL (80.0-100.0) Mean Corpuscular Hemoglobin 36.0 PG (27.0-34.0) 36.4 PG (27.0-34.0) Platelet Count 4 TH/MM3 (150-450) 13 TH/MM3 (150-450) Mean Platelet Volume 6.9 FL (7.0-11.0) Monocytes (%) (Auto) 10.0 % (0.0-8.0) Basophils (%) (Auto) 3.2 % (0.0-2.0) Platelet Estimate RARE (NORMAL) LOW (NORMAL) Prothrombin Time 13.3 SEC (9.8-11.6) Activated Partial Thromboplast Time 32.1 SEC (24.3-30.1) Random Glucose 201 MG/DL (74-106) Calcium Level 8.1 MG/DL (8.5-10.1) Lactate Dehydrogenase 330 U/L (87-241) Sodium Level 135 MEQ/L (136-145) Total Bilirubin 2.7 MG/DL (0.2-1.0) 2.2 MG/DL (0.2-1.0) Direct Bilirubin 1.4 MG/DL (0.0-0.2) 1.1 MG/DL (0.0-0.2) Indirect Bilirubin 1.3 MG/DL (0.0-0.8) 1.1 MG/DL (0.0-0.8) Aspartate Amino Transf (AST/SGOT) 96 U/L (15-37) 84 U/L (15-37) Albumin 2.8 GM/DL (3.4-5.0) 2.7 GM/DL (3.4-5.0) Vitamin B12 Level 1646 PG/ML (193-986) Neutrophils (%) (Auto) 80.2 % (16.0-70.0) Lymphocytes # (Auto) 0.8 TH/MM3 (1.0-4.8) Alkaline Phosphatase 130 U/L (45-117) Test 11/28/16 04:25 Red Blood Count 3.81 MIL/MM3 (4.50-5.90) Mean Corpuscular Volume 106.8 FL (80.0-100.0) Mean Corpuscular Hemoglobin 36.3 PG (27.0-34.0) Platelet Count 24 TH/MM3 (150-450) PE at Discharge GENERAL: Well-nourished, well-developed patient. SKIN: Warm and dry. HEAD: Normocephalic. EYES: No scleral icterus. No injection or drainage. NECK: Supple, trachea midline. No JVD or lymphadenopathy. CARDIOVASCULAR: Regular rate and rhythm without murmurs, gallops, or rubs. RESPIRATORY: Breath sounds equal bilaterally. No accessory muscle use. GASTROINTESTINAL: Abdomen soft, non-tender, nondistended. EXTREMITIES: No cyanosis, or edema. NEUROLOGICAL: Awake, alert, and oriented x 3. Non-focal. No tremors. Hospital Course Patient was admitted to the hospital, Hematology was consulted. He was treated with steroids. His platelets improved to 24,000. Etiology of the low platelets was thought secondary to ITP. He has been cleared for discharge by hematology Dr. Jarquin. He is to continue steroids and follow up in her clinic this Sunday for recheck of the CBC. Patient was advised to abstain from alcohol. Pt Condition on Discharge: Stable Discharge Disposition: Discharge Home Discharge Time: <= 30 minutes Discharge Instructions DIET: Follow Instructions for: As Tolerated, No Restrictions Activities you can perform: Regular-No Restrictions Follow up Referrals: Oncology/Hematology - 12/01/16 with Gosia Jarquin MD New Medications: Pantoprazole (Protonix) 20 Mg Tab 20 MG PO DAILY for Reflux, #307 TAB 0 Refills Prednisone (Prednisone) 20 Mg Tab 100 MG PO DAILY for increase platelets for 7 Days, #35 TAB Continued Medications: Lisinopril (Lisinopril) 10 Mg Tab 10 MG PO DAILY, #30 TAB 0 Refills Metformin (Metformin) 500 Mg Tab 500 MG PO TIDPC for Blood Sugar Management, #90 TAB 0 Refills With meals Magali Talley MD Nov 28, 2016 11:54
[2016-11-30 03:51] LABS: BETA2 GLYCOPROTEIN I AB IGA LESS THAN 9.0 SAU (< OR = 20)
== END 2016-11-28 12:40 | disposition home or self-care (01) | DRG 813 ==
LOC: PHED 11:13 → PHEDA 12:39 → PH3A 13:27
PROVIDERS: ADMIT Family Medicine; ATTEND Family Medicine
PROC: 6A550Z2 Pheresis of Platelets, Single (ICD-10-PCS; principal; 2016-11-26)
DX: D69.3 Immune thrombocytopenic purpura (principal); K70.9 Alcoholic liver disease, unspecified; I10 Essential (primary) hypertension; D69.59 Other secondary thrombocytopenia; R04.0 Epistaxis; E11.9 Type 2 diabetes mellitus without complications; R09.82 Postnasal drip; K80.20 Calculus of gallbladder without cholecystitis without obstruction; R16.1 Splenomegaly, not elsewhere classified; L40.9 Psoriasis, unspecified; F10.20 Alcohol dependence, uncomplicated; Z79.84 Long term (current) use of oral hypoglycemic drugs
CPT/HCPCS: 36430; 80048; 80076; 82247; 82248; 82607; 82948; 83010; 83615; 85025; 85027; 85060; 85384; 85598; 85610; 85613; 85730; 86146; 86147; 86880; 86900; 86901; J1815; J7050; J7512; P9035

== ENCOUNTER 2016-12-08 09:04 | Emergency (ER) | payer SELFPAY ==
[~2016-12-08] VITALS: Ht 177.8 cm; Wt 95.9 kg
[~2016-12-08 09:04] MED LIST changes: -LACT10SO PO; -MAGNSOL2 PO; -MIRA3350 PO; +PANT20 PO; +PRED20 PO
[2016-12-08 09:10] VITALS: BP 117/61; PULSE 63; RESP 16; TEMP 97.8; O2SAT 96
[2016-12-08] MEDS ORDERED: INSULIN HUMAN REGULAR 1,000 UNITS/10 ML VIAL SQ ONE (09:30)
[2016-12-08] MEDS ORDERED: SODIUM CHLOR 0.9% 1000 ML INJ 1,000 ML IV ONE ×2 (09:30→11:15)
--- NOTE | 2016-12-08 09:43 | PD ---
HPI Chief Complaint: Abnormal Results Time Seen by Provider: 09:18 Travel History International Travel<30 days: No Contact w/Intl Traveler<30days: No Traveled to known affect area: No History of Present Illness HPI This 65-year-old male presents with complaint of high blood sugar. he has a history of diabetes and is on metformin 500 mg 4 times a day. On November 26 she was admitted to the hospital after some epistaxis. He was found to have a platelet count of 4000. It was thought that he had ITP and he was started on prednisone. He is taking 100 mg daily. He has had some trouble sleeping and thought his sugar may be elevated. He had [place] [facility] and it was 600 PFSH Past Medical History Cancer: No Cardiovascular Problems: Yes (htn on meds) Diabetes: Yes Patient Takes Glucophage: Yes Diminished Hearing: No Genitourinary: No Hypertension: Yes Medical other: Yes (THROMBOCYTOPENIA) Neurologic: No Reproductive: No Respiratory: No Tetanus Vaccination: Unknown Past Surgical History Oral Surgery: No Other Surgery: Yes Social History Alcohol Use: No (FORMER) Tobacco Use: No Substance Use: No Allergies-Medications (Allergen,Severity, Reaction): Coded Allergies: No Known Allergies (Unverified , 12/08/16) Reported Meds & Prescriptions Reported Meds & Active Scripts Active Relion Lancing Device 1 Kit Kit Ea .ROUTE DIRECTED Relion Prime Blood Glucose Monitor (Device) 1 Mis Mis Kit .ROUTE DIRECTED USE TWICE DAILY Prednisone 20 Mg Tab 100 Mg PO DAILY 7 Days Reported Lisinopril 10 Mg Tab 10 Mg PO DAILY Metformin (Metformin HCl) 500 Mg Tab 500 Mg PO TIDPC With meals Review of Systems General / Constitutional: No: Fever, Chills Eyes: No: Diploplia HENT: No: Headaches Cardiovascular: No: Chest Pain or Discomfort, Palpitations Respiratory: No: Cough Gastrointestinal: No: Nausea, Vomiting Genitourinary: No: Urgency Skin: No Rash Neurologic: Positive: Weakness Physical Exam Narrative GENERAL: Well-developed male SKIN: Focused skin assessment warm/dry. HEAD: Atraumatic. Normocephalic. EYES: Pupils equal and round. No scleral icterus. No injection or drainage. ENT: No nasal bleeding or discharge. Mucous membranes pink and moist. NECK: Trachea midline. No JVD. CARDIOVASCULAR: Regular rate and rhythm. No murmur appreciated. RESPIRATORY: No accessory muscle use. Clear to auscultation. Breath sounds equal bilaterally. GASTROINTESTINAL: Abdomen soft, non-tender, nondistended. Hepatic and splenic margins not palpable. There is an ecchymotic area in the left upper quadrant remained gotten a insulin shot in the hospital abdomen is quite soft and nontender MUSCULOSKELETAL: No obvious deformities. No clubbing. No cyanosis. No edema. NEUROLOGICAL: Awake and alert. No obvious cranial nerve deficits. Motor grossly within normal limits. Normal speech. PSYCHIATRIC: Appropriate mood and affect; insight and judgment normal. Data Data Last Documented VS Vital Signs Date Time Temp Pulse Resp B/P (MAP) Pulse Ox O2 Delivery O2 Flow Rate FiO2 12/08/16 11:05 64 20 129/90 (103) 97 Room Air 12/08/16 09:10 97.8 Orders Orders Complete Blood Count With Diff (12/08/16 09:28) Basic Metabolic Panel (Bmp) (12/08/16 09:28) Beta Hydroxybutyrate (Acetone) (12/08/16 09:28) Sodium Chlor 0.9% 1000 Ml Inj (Ns 1000 M (12/08/16 09:30) Insulin Human Regular Inj (Novolin R Inj (12/08/16 09:30) Sodium Chlor 0.9% 1000 Ml Inj (Ns 1000 M (12/08/16 11:15) Insulin Human Regular Inj (Novolin R Inj (12/08/16 11:15) Labs Laboratory Tests Test 12/08/16 09:52 White Blood Count 14.6 TH/MM3 Red Blood Count 4.38 MIL/MM3 Hemoglobin 15.9 GM/DL Hematocrit 46.7 % Mean Corpuscular Volume 106.4 FL Mean Corpuscular Hemoglobin 36.3 PG Mean Corpuscular Hemoglobin Concent 34.1 % Red Cell Distribution Width 13.4 % Platelet Count 40 TH/MM3 Mean Platelet Volume 9.4 FL Neutrophils (%) (Auto) 73.7 % Lymphocytes (%) (Auto) 18.7 % Monocytes (%) (Auto) 4.9 % Eosinophils (%) (Auto) 0.5 % Basophils (%) (Auto) 2.2 % Neutrophils # (Auto) 10.8 TH/MM3 Lymphocytes # (Auto) 2.7 TH/MM3 Monocytes # (Auto) 0.7 TH/MM3 Eosinophils # (Auto) 0.1 TH/MM3 Basophils # (Auto) 0.3 TH/MM3 CBC Comment AUTO DIFF Differential Comment AUTO DIFF CONFIRMED Platelet Estimate LOW Platelet Morphology Comment NORMAL Blood Urea Nitrogen 27 MG/DL Creatinine 1.00 MG/DL Random Glucose 563 MG/DL Calcium Level 9.4 MG/DL Sodium Level 132 MEQ/L Potassium Level 4.3 MEQ/L Chloride Level 93 MEQ/L Carbon Dioxide Level 27.6 MEQ/L Anion Gap 11 MEQ/L Estimat Glomerular Filtration Rate 75 ML/MIN B-Hydroxybutyrate 0.26 MMOL/L MDM Medical Decision Making Medical Screen Exam Complete: Yes Emergency Medical Condition: Yes Medical Record Reviewed: Yes Differential Diagnosis Differential includes hyperglycemia secondary to steroids, thrombocytopenia Narrative Course His platelet count is only 40,000. His blood sugar was 550. He has been given initially subcutaneous insulin but is sugar did not come down to his given an intravenous dose and it is starting to come down. He is given follow-up with his ileocolonic. I have written a prescription for a glucose monitor. He has never given himself insulin so I'm reluctant to prescribe Diagnosis Primary Impression: hyperglycemia secondary to steroids Scripts Relion Lancing Device (Relion Lancing Device) 1 Kit Kit EA .ROUTE DIRECTED for Blood Sugar Management, #1 Prov: Norman Gallegos MD 12/08/16 Relion Prime Blood Glucose Monitor (Relion Prime Blood Glucose Monitor) 1 Mis Mis KIT .ROUTE DIRECTED for Blood Sugar Management, #1 0 Refills USE TWICE DAILY Prov: Norman Gallegos MD 12/08/16 Disposition: 01 DISCHARGE HOME Condition: Stable Norman Gallegos MD Dec 08, 2016 09:43
[2016-12-08 10:01] LABS: AUTOMATED NEUTROPHIL # 10.8 TH/MM3 (1.8-7.7); BASOPHIL # 0.3 TH/MM3 (0-0.2); BASOPHIL % 2.2 % (0.0-2.0); EOSINOPHIL # 0.1 TH/MM3 (0-0.4); EOSINOPHIL % 0.5 % (0.0-4.0); HEMATOCRIT 46.7 % (39.0-51.0); LYMPH % 18.7 % (9.0-44.0); LYMPHOCYTE # 2.7 TH/MM3 (1.0-4.8); MEAN CELL VOLUME 106.4 FL (80.0-100.0); MEAN CORPUSCULAR HEMOGLOBIN 36.3 PG (27.0-34.0); MEAN CORPUSCULAR HGB CONC 34.1 % (32.0-36.0); MONO % 4.9 % (0.0-8.0); NEUT % 73.7 % (16.0-70.0); PLATELET COUNT 40 TH/MM3 (150-450); RED BLOOD COUNT 4.38 MIL/MM3 (4.50-5.90); RED CELL DISTRIBUTION WIDTH 13.4 % (11.6-17.2); WHITE BLOOD COUNT 14.6 TH/MM3 (4.0-11.0)
[2016-12-08 10:07] LABS: POTASSIUM 4.3 MEQ/L (3.5-5.1)
[2016-12-08 10:09] LABS: HEMO FLAGS AUTO DIFF
[2016-12-08 10:12] LABS: BICARBONATE 27.6 MEQ/L (21.0-32.0)
[2016-12-08 10:49] LABS: PLATELET ESTIMATE SMEAR LOW (NORMAL); PLATELET MORPHOLOGY NORMAL (NORMAL); SCAN/DIFF AUTO DIFF CONFIRMED
[2016-12-08 10:52] LABS: BETA-HYDROXYBUTYRATE 0.26 MMOL/L (0.00-0.39)
[2016-12-08 11:05] VITALS: BP 129/90; PULSE 64; RESP 20; O2SAT 97
[2016-12-08] MEDS ORDERED: INSULIN HUMAN REGULAR 1,000 UNITS/10 ML VIAL IV PUSH ONE (11:15)
[2016-12-08] MEDS ORDERED: BLOOMIS (11:29)
[2016-12-08] MEDS ORDERED: LANC1KIT (11:30)
[2016-12-08 12:31] VITALS: BP 95/61
== END 2016-12-08 12:38 | disposition home or self-care (01) ==
LOC: PHED 09:04
DX: E11.65 Type 2 diabetes mellitus with hyperglycemia (principal); I10 Essential (primary) hypertension; D69.6 Thrombocytopenia, unspecified; Z79.899 Other long term (current) drug therapy
CPT/HCPCS: 80048; 82010; 85025; 96361; 96372; 96374; 99284; J1815; J7030